=== PATIENT | female | born 1970 | race Two or more races ===

== ENCOUNTER 2021-07-03 09:27 | Emergency (ER) | payer OTHER ==
[~2021-07-03] VITALS: Ht 162.6 cm; Wt 72.1 kg
== END 2021-07-03 13:42 | disposition home or self-care (01) ==
LOC: ER 09:27
DX: K59.09 Other constipation (principal)

== ENCOUNTER 2021-07-31 09:47 | Outpatient (CLI) | payer OTHER | END 2021-07-31 09:59 | disposition home or self-care (01) | LOC: RX STUDY 09:47 | PROVIDERS: ATTEND Colon & Rectal Surgery | DX: K59.09 Other constipation (principal) ==